=== PATIENT | male | born 1990 | race Caucasian/White ===

== ENCOUNTER 2016-12-04 20:17 | Emergency (ER) | payer SELFPAY ==
[~2016-12-04] VITALS: Ht 162.6 cm; Wt 56.8 kg
[2016-12-04] MEDS ORDERED: PERTUSS(ACELL),DIPH,TET VAC/PF 0.5 ML VIAL IM ONE (20:45)
[2016-12-04] MEDS ORDERED: SODIUM CHLORIDE 0.9% 250 ML IRRIG SOLUTION BOTTLE IRRIG ONE (20:45)
[2016-12-04] MEDS ORDERED: HYDROCODONE/ACETAMINOPHEN 5-325 MG TABLET PO ONE (20:45)
[2016-12-04] MEDS ORDERED: LIDOCAINE HCL 1% 10 ML VIAL ONE (22:48)
[2016-12-04 23:18] VITALS: BP 146/96
== END 2016-12-05 00:13 | disposition home or self-care (01) ==
LOC: EMS 20:22
DX: S01.01XA Laceration without foreign body of scalp, initial encounter (principal); S50.02XA Contusion of left elbow, initial encounter; Y04.0XXA Assault by unarmed brawl or fight, initial encounter; Y93.89 Activity, other specified; Y92.89 Other specified places as the place of occurrence of the external cause; Y99.9 Unspecified external cause status
CPT/HCPCS: 12002; 70450; 90471; 90715; 99284; J3490

== ENCOUNTER 2016-12-15 19:41 | Emergency (ER) | payer SELFPAY ==
[~2016-12-15] VITALS: Ht 165.1 cm; Wt 59.1 kg
[2016-12-15 21:05] VITALS: BP 122/77
== END 2016-12-15 21:07 | disposition home or self-care (01) ==
LOC: EMS 19:42
DX: Z48.02 Encounter for removal of sutures (principal)
CPT/HCPCS: 99281